=== PATIENT | male | born 1965 | race Caucasian/White ===

== ENCOUNTER 2022-12-09 18:39 | Emergency (ER) | payer MEDICAID ==
[~2022-12-09] VITALS: Ht 175.3 cm; Wt 86.2 kg
[2022-12-09 19:47] VITALS: BP 151/76
--- NOTE | 2022-12-09 20:47 | NUR ---
PT LEFT PRIOR TO MD CORNEJO.
--- NOTE | 2022-12-09 20:47 | NUR ---
PT NOT IN ROOM. MADE AWARE.
== END 2022-12-09 20:48 | disposition left against medical advice (07) ==
LOC: ER 18:57
DX: Z53.21 Procedure and treatment not carried out due to patient leaving prior to being seen by health care provider (principal)